=== PATIENT | female | born 1935 | race Caucasian/White ===

== ENCOUNTER 2017-05-10 10:29 | Emergency (ER) | payer MEDICARE ==
[2017-05-10 11:35] LABS: INR-International Normal Ratio 1.1; PTT 26.6 SEC (22.9-36.1); Prothrombin Time 13.9 SEC (12.0-14.7)
[2017-05-10 11:40] LABS: Mean Corpuscular Hemoglobin 32.8 pg (27.0-31.0); Mean Corpuscular Volume 99.4 fl (81.0-99.0); Mean Platelet Volume 9.6 fL (7.4-10.4); Platelet Count 137 thou/uL (130-400); RBC Distribution Width 11.4 % (11.5-14.5); Red Blood Cell (RBC) Count 4.88 mill/uL (4.20-5.40); White Blood Cell (WBC) Count 20.9 thou/uL (4.8-10.8)
[2017-05-10] MEDS ORDERED: hydrALAZINE 20 MG/ML VIAL ONE (11:57)
[2017-05-10 12:00] LABS: Band 4 % (5-11); Lymphocytes 2 % (21-51); MDiff Complete? YES; Metamyelocyte 1 % (0-0); Monocytes 6 % (0-10); Neutrophil 87 % (42-75); PLT Morphology Comment Appears Adequate; RBC Morphology Normal
[2017-05-10 12:19] LABS: ALT (SGPT) 15 U/L (8-55); AST (SGOT) 27 U/L (5-34); Alkaline Phosphatase 88 U/L (40-150); Anion Gap 18 mmol/L (10-20); BUN (Urea Nitrogen) 17 mg/dL (9.8-20.1); Bilirubin, Total 0.9 mg/dL (0.2-1.2); Calc. Creatinine Clearance 0 mL/min (70-130); Calcium 9.8 mg/dL (7.8-10.44); Carbon Dioxide 20 mmol/L (23-31); Chloride 105 mmol/L (98-107); Estimated GFR-MDRD 56; Globulin 2.9 g/dL (2.4-3.5); Glucose 163 mg/dL (83-110); Potassium 4.4 mmol/L (3.5-5.1); Protein, Total 6.9 g/dL (6.0-8.3); Sodium 139 mmol/L (136-145)
[2017-05-10] MEDS ORDERED: Ondansetron HCl/PF 4 MG/2 ML Vial ONE (12:48)
[2017-05-10 13:38] LABS: Bilirubin Negative (Negative); Blood, Urine Negative (Negative); Clarity CLEAR (Clear); Glucose, Urine (Dipstick) Negative (Negative); Leukocyte Negative (Negative); Nitrite Negative (Negative); Protein, Urine (Dipstick) Negative (Neg-Trace); Specific Gravity, Urine 1.017 (1.002-1.036); Urobilinogen 0.2 mg/dL (0.2-1.0)
--- NOTE | 2017-05-10 15:36 | CT ---
CT ABDOMEN AND PELVIS WITH ORAL AND IV CONTRAST: HISTORY: Abdominal pain. FINDINGS: Bilateral breast implants are present. There are mild dependent changes in the lung bases. The live r, spleen, pancreas, adrenal glands, and right kidney are normal. Low-densities lesions in the left kidney are likely cysts. No calcified gallstones are seen. No free air, free fluid, or lymphadenopathy is seen. There are vascular calcifications without evide nce of aneurysmal dilatation of the abdominal aorta. There are degenerative changes in the spine. The small bowel loops are not abnormally dilated. A normal-appearing appendix is present. There is sigmoid diverticulosis. There is thickening of the wall of the descending and transverse colon. The re is pericolonic inflammatory change. IMPRESSION: 1. Findings are suspicious for colitis. A colonoscopy should be performed after a course of antibio tics. 2. Sigmoid diverticulosis. 3. Probable left renal cyst. POS: [facility]
[2017-05-10] MEDS ORDERED: Iopamidol 370 76% 50 ML VIAL FS ONE (17:03)
[2017-05-10] MEDS ORDERED: ISOVUE-370 76%-LOCM 1 ML ONE (17:03)
== END 2017-05-10 14:54 | disposition home or self-care (01) ==
LOC: ERS 10:29
DX: K52.9 Noninfective gastroenteritis and colitis, unspecified (principal); I10 Essential (primary) hypertension; Z79.899 Other long term (current) drug therapy
CPT/HCPCS: 36415; 74177; 80053; 81003; 83605; 85025; 85610; 85730; 86850; 86900; 86901; 93005; 96374; 96375; J0360; J2405

== ENCOUNTER 2017-12-19 22:11 | Emergency (ER) | payer MEDICARE ==
[2017-12-19] MEDS ORDERED: diphenhydrAMINE 25 MG CAP ONE (22:40)
[2017-12-19] MEDS ORDERED: Dexamethasone 4 mg/ml Vial ONE (22:40)
[2017-12-19] MEDS ORDERED: Famotidine 20 MG TAB ONE (22:40)
== END 2017-12-19 23:50 | disposition home or self-care (01) ==
LOC: ERS 22:11
DX: T78.40XA Allergy, unspecified, initial encounter (principal); Z79.899 Other long term (current) drug therapy
CPT/HCPCS: J1100

== ENCOUNTER 2018-07-12 14:19 | Outpatient (CLI) | payer MEDICARE, OTHER ==
--- NOTE | 2018-07-12 15:19 | RAD ---
RIGHT RING DIGIT RADIOGRAPHS THREE VIEWS: 07/12/2018 PROVIDED CLINICAL HISTORY: Right ring digit injury. FINDINGS: There is a not significantly displaced fracture involving the radial aspects of the ring digit, dista l phalangeal phase, with intraarticular extension. No additional fracture is evident. Joint spaces appear preserved. IMPRESSION: Nondisplaced ring digit, distal phalangeal fracture, as above. POS: [facility]
== END 2018-07-12 14:20 | disposition home or self-care (01) ==
LOC: SCSRAD 14:19
PROVIDERS: ATTEND Family Medicine
DX: S69.91XA Unspecified injury of right wrist, hand and finger(s), initial encounter (principal); S62.634A Displaced fracture of distal phalanx of right ring finger, initial encounter for closed fracture

== ENCOUNTER 2019-11-01 18:16 | Emergency (ER) | payer MEDICARE ==
[2019-11-01] MEDS ORDERED: Bacitracin 1 PK ONE (18:38)
[2019-11-01] MEDS ORDERED: Adacel (T-DAP) 0.5 ML SYRINGE ONE (18:38)
== END 2019-11-01 18:57 | disposition home or self-care (01) ==
LOC: ERS 18:16
DX: S51.812A Laceration without foreign body of left forearm, initial encounter (principal); I10 Essential (primary) hypertension; Z79.899 Other long term (current) drug therapy; W19.XXXA Unspecified fall, initial encounter
CPT/HCPCS: 90471; 90715

== ENCOUNTER 2020-08-03 13:38 | Outpatient (CLI) | payer MEDICARE | END 2020-08-03 13:39 | disposition home or self-care (01) | LOC: BICMAMMO 13:38 | PROVIDERS: ATTEND Family Medicine | DX: N63.20 Unspecified lump in the left breast, unspecified quadrant (principal); Z98.82 Breast implant status | CPT/HCPCS: 77066; G0279 ==

== ENCOUNTER 2021-09-13 22:34 | Emergency (ER) | payer OTHER, MEDICARE ==
[2021-09-14] MEDS ORDERED: Boostrix 0.5 ML (Tdap) VIAL ONE (00:02)
[2021-09-14] MEDS ORDERED: Amoxicillin/Potassium Clav 875 MG TAB ONE (00:02)
== END 2021-09-14 00:27 | disposition home or self-care (01) ==
LOC: ERS 22:34
DX: S51.811A Laceration without foreign body of right forearm, initial encounter (principal); L03.113 Cellulitis of right upper limb; I10 Essential (primary) hypertension; W54.8XXA Other contact with dog, initial encounter; Z23 Encounter for immunization
CPT/HCPCS: 90715

== ENCOUNTER → 2022-02-27 | Outpatient (CLI) | payer MEDICARE | LOC: PET 08:45 | PROVIDERS: ATTEND Psychiatry & Neurology Neurology | DX: G31.84 Mild cognitive impairment of uncertain or unknown etiology (principal) | CPT/HCPCS: 78803; A9552 ==

== ENCOUNTER 2022-11-19 09:54 | Outpatient (CLI) | payer MEDICARE | END 2022-11-19 09:55 | disposition home or self-care (01) | LOC: SCSRAD 09:54 | PROVIDERS: ATTEND Family Medicine | DX: M54.9 Dorsalgia, unspecified (principal); M47.816 Spondylosis without myelopathy or radiculopathy, lumbar region | CPT/HCPCS: 72072; 72100 ==

== ENCOUNTER 2023-02-14 21:05 | Emergency (ER) | payer MEDICARE ==
[2023-02-14 23:53] LABS: #Basophils 0.1 thou/uL (0.0-0.2); #Eosinphils 0.4 thou/uL (0.0-0.7); #Monocytes 0.5 thou/uL (0.11-0.59); #Neutrophils 3.4 thou/uL (1.40-6.50); %Basophils 1.2 % (0.0-1.0); %Eosinophils 6.1 % (0.0-10.0); %Lymphocytes 27.4 % (21.0-51.0); %Monocytes 8.6 % (0.0-10.0); %Neutrophils 56.4 % (42.0-75.0); Hematocrit 45.9 % (36.0-47.0); Hemoglobin 15.2 g/dL (12.0-16.0); Mean Corpuscular HGB CONC 33.1 g/dL (32.0-36.0); Mean Corpuscular Hemoglobin 31.8 pg (27.0-31.0); Mean Platelet Volume 10.7 fL (7.4-10.4); Platelet Count 213 10x3/uL (130-400); RBC Distribution Width 12.9 % (11.5-14.5); Red Blood Cell (RBC) Count 4.78 mill/uL (4.20-5.40); White Blood Cell (WBC) Count 6.1 10x3/uL (4.8-10.8)
[2023-02-15 00:15] LABS: ALT (SGPT) 13 U/L (8-55); AST (SGOT) 20 U/L (5-34); Albumin 4.4 g/dL (3.4-4.8); Alkaline Phosphatase 66 U/L (40-110); Anion Gap 13 mmol/L (10-20); BUN (Urea Nitrogen) 19 mg/dL (9.8-20.1); Bilirubin, Total 0.5 mg/dL (0.2-1.2); Calc. Creatinine Clearance 0 mL/min (70-130); Carbon Dioxide 25 mmol/L (23-31); Chloride 107 mmol/L (98-107); Estimated GFR 48; Globulin 2.9 g/dL (2.4-3.5); Glucose 105 mg/dL (83-110); Potassium 3.8 mmol/L (3.5-5.1); Protein, Total 7.3 g/dL (5.8-8.1); Sodium 141 mmol/L (136-145)
[2023-02-15 00:18] LABS: Troponin I 0.019 ng/mL (< 0.028)
== END 2023-02-15 00:06 | disposition left against medical advice (07) ==
LOC: ERS 21:05
DX: Z53.21 Procedure and treatment not carried out due to patient leaving prior to being seen by health care provider (principal)
CPT/HCPCS: 36415; 71045; 80053; 84484; 85025; 93005

== ENCOUNTER 2023-06-02 19:41 | Emergency (ER) | payer MEDICARE | END 2023-06-02 22:07 | disposition home or self-care (01) | LOC: ERS 19:41 | DX: S50.12XA Contusion of left forearm, initial encounter (principal); W22.01XA Walked into wall, initial encounter; Y93.01 Activity, walking, marching and hiking ==

== ENCOUNTER 2023-07-19 20:09 | Emergency (ER) | payer MEDICARE, OTHER ==
[2023-07-19] MEDS ORDERED: Bacitracin 1 PK ONE (22:23)
[2023-07-19] MEDS ORDERED: Acetaminophen 325 MG TAB ONE (22:23)
== END 2023-07-19 22:45 | disposition home or self-care (01) ==
LOC: ERS 20:09
DX: S51.811A Laceration without foreign body of right forearm, initial encounter (principal); S50.11XA Contusion of right forearm, initial encounter; I10 Essential (primary) hypertension; W54.0XXA Bitten by dog, initial encounter

== ENCOUNTER 2023-10-16 18:32 | Emergency (ER) | payer MEDICARE ==
[2023-10-16] MEDS ORDERED: Boostrix 0.5 ML (Tdap) VIAL (>/=7 yrs of age) ONE (20:42)
[2023-10-16] MEDS ORDERED: HYDROcodone/Acetaminophen 5/325 mg Tablet ONE (20:42)
[2023-10-16] MEDS ORDERED: Lidocaine 1% w/Epinephrine 1:100K 20 ML VIAL ONE (20:42)
[2023-10-16] MEDS ORDERED: Amoxicillin/Potassium Clav 875 MG TAB ONE (20:42)
[2023-10-16] MEDS ORDERED: cefTRIAXone (ROCEPHIN) 500 MG VIAL ONE (21:16)
[2023-10-16] MEDS ORDERED: cefTRIAXone (ROCEPHIN) 1 GM VIAL ONE (21:18)
[2023-10-16] MEDS ORDERED: Lidocaine 1% MPF 2 ML VIAL ONE (21:19)
[2023-10-17] MEDS ORDERED: Bacitracin Zinc Ointment 30 gm TUBE TOP SCH (00:30)
[2023-10-17] MEDS ORDERED: HYDROcodone/Acetaminophen 5/325 mg Tablet ONE (03:04)
== END 2023-10-17 01:35 | disposition home or self-care (01) ==
LOC: ERS 18:32
DX: S62.316A Displaced fracture of base of fifth metacarpal bone, right hand, initial encounter for closed fracture (principal); S61.216A Laceration without foreign body of right little finger without damage to nail, initial encounter; S61.411A Laceration without foreign body of right hand, initial encounter; S61.511A Laceration without foreign body of right wrist, initial encounter; M79.89 Other specified soft tissue disorders; I10 Essential (primary) hypertension; W54.0XXA Bitten by dog, initial encounter; Y93.89 Activity, other specified; Z23 Encounter for immunization; Z79.899 Other long term (current) drug therapy
CPT/HCPCS: 12002; 73130; 90715; 99283; J0696

== ENCOUNTER 2023-11-02 18:04 | Emergency (ER) | payer MEDICARE | END 2023-11-02 19:52 | disposition home or self-care (01) | LOC: ERS 18:04 | DX: S61.511D Laceration without foreign body of right wrist, subsequent encounter (principal); S61.411D Laceration without foreign body of right hand, subsequent encounter; S91.312D Laceration without foreign body, left foot, subsequent encounter; W54.0XXD Bitten by dog, subsequent encounter ==

== ENCOUNTER 2023-11-04 13:06 | Emergency (ER) | payer MEDICARE ==
[2023-11-04 14:54] LABS: #Basophils 0.05 10x3/uL (0.0-0.2); %Basophils 0.5 % (0.0-1.0); %Eosinophils 1.2 % (0.0-10.0); %Lymphocytes 8.8 % (21.0-51.0); %Monocytes 5.2 % (0.0-10.0); Hematocrit 36.1 % (36.0-47.0); Hemoglobin 11.9 g/dL (12.0-16.0); Mean Corpuscular Hemoglobin 32.2 pg (27.0-31.0); Mean Corpuscular Volume 97.8 fL (78.0-98.0); Mean Platelet Volume 10.3 fL (7.4-10.4); Platelet Count 238 10x3/uL (130-400); RBC Distribution Width 12.7 % (11.5-14.5); Red Blood Cell (RBC) Count 3.69 mill/uL (4.20-5.40)
[2023-11-04 15:16] LABS: ALT (SGPT) 5 U/L (8-55); AST (SGOT) 11 U/L (5-34); Alkaline Phosphatase 65 U/L (40-110); Anion Gap 13 mmol/L (10-20); BUN (Urea Nitrogen) 15 mg/dL (9.8-20.1); Bilirubin, Total 0.8 mg/dL (0.2-1.2); Calc. Creatinine Clearance 0 mL/min (70-130); Calcium 8.4 mg/dL (7.8-10.44); Carbon Dioxide 21 mmol/L (23-31); Chloride 112 mmol/L (98-107); Estimated GFR 56; Globulin 2.7 g/dL (2.4-3.5); Glucose 97 mg/dL (83-110); Potassium 3.9 mmol/L (3.5-5.1); Protein, Total 5.7 g/dL (5.8-8.1); Sodium 142 mmol/L (136-145)
[2023-11-04 15:22] LABS: Troponin I 0.015 ng/mL (< 0.028)
== END 2023-11-04 16:16 | disposition home or self-care (01) ==
LOC: ERS 13:06
DX: S60.212A Contusion of left wrist, initial encounter (principal); S80.02XA Contusion of left knee, initial encounter; S90.02XA Contusion of left ankle, initial encounter; S80.01XA Contusion of right knee, initial encounter; R55 Syncope and collapse; I10 Essential (primary) hypertension; Z79.899 Other long term (current) drug therapy; X58.XXXA Exposure to other specified factors, initial encounter
CPT/HCPCS: 36415; 71045; 80053; 84484; 85025; 93005

== ENCOUNTER 2025-01-24 02:56 | Emergency (ER) | payer OTHER ==
[2025-01-24] MEDS ORDERED: Bacitracin 1 PK ONE (05:07)
[2025-01-24] MEDS ORDERED: Boostrix 0.5 ML (Tdap) VIAL (>/=7 yrs of age) ONE (07:06)
== END 2025-01-24 07:20 | disposition home or self-care (01) ==
LOC: ERS 02:56
DX: S92.402A Displaced unspecified fracture of left great toe, initial encounter for closed fracture (principal); S90.122A Contusion of left lesser toe(s) without damage to nail, initial encounter; S61.512A Laceration without foreign body of left wrist, initial encounter; Z00.00 Encounter for general adult medical examination without abnormal findings; I10 Essential (primary) hypertension; X58.XXXA Exposure to other specified factors, initial encounter
CPT/HCPCS: 36416; 90715

== ENCOUNTER 2025-01-24 16:13 | Outpatient (CLI) | payer OTHER | END 2025-01-24 16:14 | disposition home or self-care (01) | LOC: RAD 16:13 | PROVIDERS: ATTEND Family Medicine | DX: M25.532 Pain in left wrist (principal); M79.675 Pain in left toe(s); M77.52 Other enthesopathy of left foot and ankle; S92.402A Displaced unspecified fracture of left great toe, initial encounter for closed fracture; S90.122A Contusion of left lesser toe(s) without damage to nail, initial encounter; S61.512A Laceration without foreign body of left wrist, initial encounter | CPT/HCPCS: 36416; 90471; 90715 ==